=== PATIENT | male | born 1950 | race Asian ===

== ENCOUNTER 2018-10-15 15:33 | Emergency (ER) | payer MEDICARE, OTHER ==
[~2018-10-15] VITALS: Ht 165.1 cm; Wt 78.5 kg
[2018-10-15 15:33] VITALS: BP 134/75
[2018-10-15] MEDS ORDERED: IBUPROFEN 600 MG TABLET PO ONE ×2 (15:48→16:00)
--- NOTE | 2018-10-15 16:50 | NUR ---
Patient discharged to home in stable condition. Written and verbal after care instructions given. Patient verbalizes understanding of instruction.
== END 2018-10-15 16:52 | disposition home or self-care (01) ==
LOC: ER 15:35
DX: S93.492A Sprain of other ligament of left ankle, initial encounter (principal); Z60.2 Problems related to living alone; W18.39XA Other fall on same level, initial encounter; Y93.01 Activity, walking, marching and hiking; Y92.410 Unspecified street and highway as the place of occurrence of the external cause; Y99.8 Other external cause status
CPT/HCPCS: 73610-TC